=== PATIENT | female | born 1960 | race Hispanic/Latino ===

== ENCOUNTER 2018-05-28 17:06 | Inpatient (IN) | payer BC ==
[2018-05-28 18:26] LABS: BASO # 0.02 K/mm3 (0.0-2.0); BASO % 0.3 % (0.0-3.0); EOS # 0.1 (0.0-0.7); EOS % 0.8 % (1.5-5.0); GRAN # 4.14 (1.4-6.5); GRAN % 67.1 % (50.0-68.0); HEMOGLOBIN 13.6 g/dL (12.0-16.0); LYMPH # 1.6 (1.2-3.4); LYMPH % 26.1 % (22.0-35.0); MEAN CELL VOLUME 90.8 fl (80.0-105.0); MEAN CORPUSCULAR HEMOGLOBIN 29.9 pg (25.0-35.0); MEAN CORPUSCULAR HGB CONC 32.9 g/dl (31.0-37.0); MEAN PLATELET VOLUME 10.4 fl (7.0-11.0); MONO # 0.4 (0.1-0.6); MONO % 5.7 % (1.0-6.0); RBC 4.55 10^6/uL (3.5-6.1); RED CELL DISTRIBUTION WIDTH 12.3 % (11.5-14.5); WHITE BLOOD COUNT 6.2 10^3/uL (4.5-11.0)
[2018-05-28 18:33] LABS: INR 0.98; PARTIAL THROMBOPLASTIN TIME 27.2 Seconds (25.1-36.5); PROTHROMBIN TIME 11.2 SECONDS (9.4-12.5)
[2018-05-28 18:36] LABS: ALB/GLOB RATIO 1.5 (1.1-1.8); ALBUMIN 4.1 g/dL (3.0-4.8); ALT/SGPT 32 U/L (7-56); AST/SGOT 20 U/L (14-36); BLOOD UREA NITROGEN 14 mg/dL (7-21); CALCIUM 8.9 mg/dL (8.4-10.5); GFR NON-AFRICAN AMERICAN > 60
[2018-05-28 18:46] LABS: TROPONIN I < 0.01 ng/mL
--- NOTE | 2018-05-28 18:52 | ED PDOC ---
Arrival/HPI - General Chief Complaint: Altered Mental Status Time Seen by Provider: 05/28/18 17:14 Historian: Patient - History of Present Illness Narrative History of Present Illness (Text): 05/28/18 18:46 58yo female with pmhx of CVA, Alzheimer bib EMS for complaint of syncope this evening. the by the bedside states after taking a walk, patient suddenly collapsed at home, and he caught her stopping her from falling to the floor. states after patient became conscious she again had another syncopal episode. Denies previous history. Denies headache, dizziness, focal weakness, nausea, vomiting, URI symptoms, nausea, vomiting, abdominal pain, chest pain, back pain, visual changes, any other complaint. Past Medical History - Provider Review Nursing Documentation Reviewed: Yes - Infectious Disease Hx of Infectious Diseases: None - Reproductive Menopause: Yes - Cardiac Hx Cardiac Disorders: No Hx Pacemaker: No - Neurological Hx Alzheimer's Disease: Yes Hx Paralysis: No - Renal Hx Renal Disorder: No - Hematological/Oncological Hx Blood Transfusions: No - Musculoskeletal/Rheumatological Hx Musculoskeletal Disorders: No - Psychiatric Hx Emotional Abuse: No Hx Physical Abuse: No Hx Substance Use: No - Anesthesia Hx Anesthesia Reactions: No Hx Malignant Hyperthermia: No - Suicidal Assessment Feels Threatened In Home Enviroment: No Family/Social History - Physician Review Nursing Documentation Reviewed: Yes Family/Social History: Unknown Family HX Smoking Status: Unknown If Ever Smoked Hx Alcohol Use: No Hx Substance Use: No Allergies/Home Meds Allergies/Adverse Reactions: Allergies No Known Allergies Allergy (Verified 08/11/14 09:30) Home Medications: Home Meds Medication Instructions Recorded Confirmed Cefadroxil [Duricef] 500 mg PO BID 08/25/14 08/25/14 Oxycodone HCl/Acetaminophen 1 tab PO Q6 PRN 08/25/14 08/25/14 [Percocet 325 mg-5 mg] Review of Systems - Physician Review All systems were reviewed & negative as marked: Yes - Review of Systems Constitutional: Normal Eyes: Normal ENT: Normal Respiratory: Normal Cardiovascular: Normal Gastrointestinal: Normal Genitourinary Female: Normal Musculoskeletal: Normal Skin: Normal Neurological: Other (Syncope) Endocrine: Normal Hemo/Lymphatic: Normal Psychiatric: Normal Physical Exam Vital Signs Reviewed: Yes Vital Signs Temp Pulse Resp BP Pulse Ox 05/28/18 17:20 98.3 F 48 L 20 136/82 98 Temperature: Afebrile Blood Pressure: Normal Pulse: Regular Respiratory Rate: Normal Appearance: Positive for: Well-Appearing, Non-Toxic, Comfortable Pain Distress: None Mental Status: Positive for: Alert and Oriented X 3 - Systems Exam Head: Present: Atraumatic, Normocephalic Pupils: Present: PERRL Extroacular Muscles: Present: EOMI Conjunctiva: Present: Normal Mouth: Present: Moist Mucous Membranes Neck: Present: Normal Range of Motion Respiratory/Chest: Present: Clear to Auscultation, Good Air Exchange. No: Respiratory Distress, Accessory Muscle Use Cardiovascular: Present: Regular Rate and Rhythm, Normal S1, S2. No: Murmurs Abdomen: No: Tenderness, Distention, Peritoneal Signs Back: Present: Normal Inspection Upper Extremity: Present: Normal Inspection. No: Cyanosis, Edema Lower Extremity: Present: Normal Inspection. No: Edema Neurological: Present: GCS=15, CN II-XII Intact, Speech Normal, Motor Func Grossly Intact, Normal Sensory Function, Normal Cerebellar Funct, Normal 2Pt Descrimination Skin: Present: Warm, Dry, Normal Color. No: Rashes Psychiatric: Present: Alert, Oriented x 3, Normal Insight, Normal Concentration Medical Decision Making ED Course and Treatment: 05/28/18 18:53 58yo female in ED for syncope. Inspector Floor Sub Assembly CT EKG CXR Labs was unremarkable EKG Marked sinus yamil @ 47bpm Comparable to previous EKG Head CT - pending case was DW Dr. Carrasquillo and he accepted pt for admission. He request Dr. Valenzuela consult - Lab Interpretations Lab Results: 05/28/18 18:00 05/28/18 18:00 Lab Results 05/28/18 18:00: Sodium 138, Potassium 3.9, Chloride 101, Carbon Dioxide 30, Anion Gap 12, BUN 14, Creatinine 0.8, Est GFR ( Amer) > 60, Est GFR (Non- Af Amer) > 60, Random Glucose 97, Calcium 8.9, Phosphorus 5.0 H, Magnesium 2.2, Total Bilirubin 0.3, AST 20, ALT 32, Alkaline Phosphatase 90, Lactate Dehydrogenase 429, Total Creatine Kinase 53, Troponin I Pending, Total Protein 7.0, Albumin 4.1, Globulin 2.8, Albumin/Globulin Ratio 1.5 05/28/18 18:00: PT 11.2, INR 0.98, APTT 27.2 05/28/18 18:00: WBC 6.2, RBC 4.55, Hgb 13.6, Hct 41.3, MCV 90.8, MCH 29.9, MCHC 32.9, RDW 12.3, Plt Count 228, MPV 10.4, Gran % 67.1, Lymph % (Auto) 26.1, Sebastian % (Auto) 5.7, Eos % (Auto) 0.8 L, Baso % (Auto) 0.3, Gran # 4.14, Lymph # (Auto) 1.6, Sebastian # (Auto) 0.4, Eos # (Auto) 0.1, Baso # (Auto) 0.02 - RAD Interpretation Radiology Orders: 05/28/18 17:34 HEAD W/O CONTRAST [CT] Stat Disposition/Present on Arrival - Present on Arrival Any Indicators Present on Arrival: No History of DVT/PE: No History of Uncontrolled Diabetes: No Urinary Catheter: No History of Decub. Ulcer: No History Surgical Site Infection Following: None - Disposition Have Diagnosis and Disposition been Completed?: Yes Diagnosis: Syncope Disposition: HOSPITALIZED Disposition Time: 18:50 Patient Plan: Admission Patient Problems: Current Active Problems Problem Status Onset Syncope Acute Condition: FAIR Discharge Instructions (ExitCare): Syncope (ED) Referrals: PCP,NO [Primary Care Provider] - Follow up with primary Forms: [employer] (Setswana)
--- NOTE | 2018-05-28 20:38 | CP.PCM.HP ---
History of Present Illness - History of Present Illness History of Present Illness: Milton Morales, PGY1 H&P for Dr. Carrasquillo's Service This is a 58 year old female with PMH of CVA and alzheimer's disease presenting to the ER s/p 2 witnessed syncopal episodes. Per , patient was walking and started to feel dizzy and held onto patient as she lost consciousness. brought patient home and had another witnessed syncopal episode. denies any trauma including head trauma, urinary/fecal incontinence, muscle spasms, and tongue fasciculations. He states patient has never had syncopal episodes before. Patient does not recall anything from the syncopal episodes and per family has severe alzheimer's. Currently, she denies chest pain, SOB, fevers, headaches, numbness, tingling, swelling, weakness, nausea, vomiting, chills, back pain, abdominal pain, urinary complaints, diarrhea, constipation, recent travel, sickness, trauma, and lifestyle changes including medications, diet and weight. 12 point ROS noted here, otherwise unremarkable. PMD: none currently PMH: CVA, alzheimers Meds: donepezil 10mg, namenda 20mg FH: CAD, breast cancer, lung cancer All: NKDA Sx: 2014 adenoids SH: former smoker, denies drinking and drug use Present on Admission - Present on Admission Any Indicators Present on Admission: No Past Patient History - Infectious Disease Hx of Infectious Diseases: None - Past Social History Smoking Status: Former Smoker - CARDIAC Hx Cardiac Disorders: No Hx Pacemaker: No - NEUROLOGICAL Hx Alzheimer's Disease: Yes Hx Paralysis: No - RENAL Hx Chronic Kidney Disease: No - HEMATOLOGICAL/ONCOLOGICAL Hx Blood Transfusions: No - MUSCULOSKELETAL/RHEUMATOLOGICAL Hx Musculoskeletal Disorders: No - PSYCHIATRIC Hx Emotional Abuse: No Hx Physical Abuse: No Hx Substance Use: No - SURGICAL HISTORY Hx Surgeries: Yes - ANESTHESIA Hx Anesthesia Reactions: No Hx Malignant Hyperthermia: No Meds Allergies/Adverse Reactions: Allergies Allergy/AdvReac Type Severity Reaction Status Date / Time No Known Allergies Allergy Verified 08/11/14 09:30 Physical Exam - Constitutional Appears: No Acute Distress - Head Exam Head Exam: ATRAUMATIC, NORMAL INSPECTION - Eye Exam Eye Exam: EOMI Pupil Exam: PERRL - ENT Exam ENT Exam: Mucous Membranes Moist - Respiratory Exam Respiratory Exam: Clear to Auscultation Bilateral. absent: Accessory Muscle Use, Wheezes, Respiratory Distress - Cardiovascular Exam Cardiovascular Exam: REGULAR RHYTHM, +S1, +S2 - GI/Abdominal Exam GI & Abdominal Exam: Normal Bowel Sounds, Soft. absent: Firm, Guarding, Tenderness - Extremities Exam Extremities exam: Positive for: normal inspection, pedal pulses present. Negative for: calf tenderness, tenderness - Back Exam Back exam: NORMAL INSPECTION - Neurological Exam Neurological exam: Alert, CN II-XII Intact Additional comments: RUE/RLE and LUE/LLE motor strength 5/5 and no sensory deficits appreciated. Patient is alert to person but not place or time. Has trouble following commands - Skin Skin Exam: Normal Color, Warm Results - Vital Signs Recent Vital Signs: Last Vital Signs Temp 98.3 F 05/28/18 17:20 Pulse 56 L 05/28/18 19:06 Resp 18 05/28/18 19:06 BP 119/63 05/28/18 19:06 Pulse Ox 98 05/28/18 19:06 - Labs Result Diagrams: 05/28/18 18:00 05/28/18 18:00 Labs: Laboratory Results - last 24 hr 05/28/18 05/28/18 05/28/18 18:00 18:00 18:00 WBC 6.2 RBC 4.55 Hgb 13.6 Hct 41.3 MCV 90.8 MCH 29.9 MCHC 32.9 RDW 12.3 Plt Count 228 MPV 10.4 Gran % 67.1 Lymph % (Auto) 26.1 Potter % (Auto) 5.7 Eos % (Auto) 0.8 L Baso % (Auto) 0.3 Gran # 4.14 Lymph # (Auto) 1.6 Potter # (Auto) 0.4 Eos # (Auto) 0.1 Baso # (Auto) 0.02 PT 11.2 INR 0.98 APTT 27.2 Sodium 138 Potassium 3.9 Chloride 101 Carbon Dioxide 30 Anion Gap 12 BUN 14 Creatinine 0.8 Est GFR ( Amer) > 60 Est GFR (Non-Af Amer) > 60 Random Glucose 97 Calcium 8.9 Phosphorus 5.0 H Magnesium 2.2 Total Bilirubin 0.3 AST 20 ALT 32 Alkaline Phosphatase 90 Lactate Dehydrogenase 429 Total Creatine Kinase 53 Troponin I < 0.01 Total Protein 7.0 Albumin 4.1 Globulin 2.8 Albumin/Globulin Ratio 1.5 Assessment & Plan - Assessment and Plan (Free Text) Assessment: This is a 58 year old female with PMH of CVA and alzheimer's disease presenting to the ER s/p 2 witnessed syncopal episodes. Plan: Syncopal episode -cardiogenic vs neurogenic vs cardio-inhibitory -echo -MRI brain w/wo contrast -MRA brain without contrast -EEG -seizure/aspiring precautions -HOB 30 degrees -ASA, statin -neurochecks -U/A, urine culture -lipid, A1c, TSH, T4 free and total, B12, folate, RPR, lyme -orthostatics -EKG -carotid doppler -NS 80cc for 2L -Cardio on consult, Dr. acballero -Neurology on consult Hx of Alzheimer's -continue home medications, memantine and donepezil PPX with SCD and pepcid HHD Patient case discussed with attending, Dr. Carrasquillo
[2018-05-28 21:04] LABS: URINE BILIRUBIN NEGATIVE (NEGATIVE); URINE BLOOD NEGATIVE (NEGATIVE); URINE GLUCOSE (UA) NEGATIVE (NEGATIVE); URINE LEUKOCYTE ESTERASE TRACE Leu/uL (NEGATIVE); URINE PROTEIN TRACE mg/dL (<30 mg/dL); URINE UROBILINOGEN 0.2 E.U./dL (<1 E.U./dL)
[2018-05-28 21:06] LABS: URINE APPEARANCE SLIGHT-CLOUDY (CLEAR); URINE COLOR YELLOW (YELLOW)
[2018-05-28 21:17] LABS: URINE RBC NEGATIVE /hpf (0-2)
[2018-05-28 21:18] LABS: URINE CALCIUM OXALATE CRYSTALS MANY /hpf
[2018-05-28 21:20] LABS: BARBITURATES, UR NEGATIVE (NEGATIVE); BENZODIAZEPINES, UR NEGATIVE (NEGATIVE); OPIATES, UR NEGATIVE (NEGATIVE); PHENCYCLIDINE, UR NEGATIVE (NEGATIVE)
[2018-05-28] MEDS: Sodium Chloride 0.9% 1,000 ML IV SCH (21:20)
[2018-05-28 23:15] VITALS: BMI 17.9
[2018-05-28] MEDS ORDERED: Influenza Vaccine 60 mcg/0.5 mL SYR (4YR UP) IM ONE (23:15)
[2018-05-28] MEDS ORDERED: Pneumococcal 23-Valent Vaccine IM ONE (23:15)
[2018-05-29 06:37] LABS: BASO # 0.01 K/mm3 (0.0-2.0); BASO % 0.2 % (0.0-3.0); EOS % 0.5 % (1.5-5.0); GRAN # 3.97 (1.4-6.5); GRAN % 61.3 % (50.0-68.0); HEMOGLOBIN 12.4 g/dL (12.0-16.0); LYMPH # 2.1 (1.2-3.4); LYMPH % 31.7 % (22.0-35.0); MEAN CELL VOLUME 89.8 fl (80.0-105.0); MEAN CORPUSCULAR HEMOGLOBIN 29.3 pg (25.0-35.0); MEAN CORPUSCULAR HGB CONC 32.6 g/dl (31.0-37.0); MEAN PLATELET VOLUME 10.7 fl (7.0-11.0); MONO # 0.4 (0.1-0.6); MONO % 6.3 % (1.0-6.0); RBC 4.23 10^6/uL (3.5-6.1); RED CELL DISTRIBUTION WIDTH 12.4 % (11.5-14.5); WHITE BLOOD COUNT 6.5 10^3/uL (4.5-11.0)
[2018-05-29] MEDS: Pantoprazole 40 mg EC Tab PO SCH (06:58)
[2018-05-29 07:20] LABS: FREE T4 1.06 ng/dL (0.78-2.19); T4 7.9 ug/dL (5.5-11.0)
[2018-05-29 07:36] LABS: ALB/GLOB RATIO 1.3 (1.1-1.8); ALBUMIN 3.7 g/dL (3.0-4.8); ALT/SGPT 24 U/L (7-56); AST/SGOT 23 U/L (14-36); BLOOD UREA NITROGEN 9 mg/dL (7-21); CALCIUM 8.9 mg/dL (8.4-10.5); GFR NON-AFRICAN AMERICAN > 60; HDL CHOLESTEROL 52 mg/dL (29-60); LDL CHOLESTEROL 107 mg/dL (0-129)
--- NOTE | 2018-05-29 09:06 | CT ---
Date of service: 05/28/2018 PROCEDURE: CT HEAD WITHOUT CONTRAST. HISTORY: Syncope COMPARISON: None available. TECHNIQUE: Axial computed tomography images were obtained through the head/brain without intravenous contrast. Supplemental Coronal and Sagittal projections created and reviewed. Radiation dose: Total exam DLP = 759.21 mGy-cm. This CT exam was performed using one or more of the following dose reduction techniques: Automated exposure control, adjustment of the mA and/or kV according to patient size, and/or use of iterative reconstruction technique. FINDINGS: HEMORRHAGE: No intracranial hemorrhage. BRAIN: No mass effect or edema. Cortical atrophy and chronic microvascular ischemic change. VENTRICLES: Unremarkable. No hydrocephalus. CALVARIUM: Unremarkable. PARANASAL SINUSES: Unremarkable as visualized. No significant inflammatory changes. MASTOID AIR CELLS: Unremarkable as visualized. No inflammatory changes. OTHER FINDINGS: None. IMPRESSION: No acute intracranial abnormalities. No significant findings to account for the clinical presentation. Concordant results (preliminary interpretation) provided by [employer]. Procedure Completed: 18:44. Preliminary Report: Dictated and Authenticated: 19:16. Final Interpretation: 09:02. May 29, 2018
[2018-05-29] MEDS: Sodium Chloride 0.9% 1,000 ML IV SCH ×2 (09:30→17:45)
[2018-05-29] MEDS ORDERED: Gadodiamide 287 MG/ML VIAL (15ML) IV ONE (09:39)
--- NOTE | 2018-05-29 11:19 | MRI ---
Date of service: 05/29/2018 PROCEDURE: MRI BRAIN WITH AND WITHOUT CONTRAST HISTORY: syncopal episode COMPARISON: None available. TECHNIQUE: Multiplanar, multisequence MR images of the brain were obtained with and without intravenous contrast enhancement. 15 cc of Omniscan FINDINGS: HEMORRHAGE: None DWI: No evidence of an acute or early subacute infarction. BRAIN PARENCHYMA: No mass,mass effect or edema. Mild atrophy. Minimal microvascular changes ENHANCEMENT: No abnormal intracranial enhancement. VENTRICLES: There is asymmetry in ventricular size left larger than right. CRANIUM: Unremarkable. ORBITS: Grossly unremarkable. PARANASAL SINUSES/MASTOIDS: Clear VASCULAR SYSTEM: Skull base flow voids intact. OTHER FINDINGS: None . IMPRESSION: Unremarkable pre and post contrast enhanced MRI of the brain.
--- NOTE | 2018-05-29 11:21 | MRI ---
Date of service: 05/29/2018 PROCEDURE: Magnetic Resonance Angiography Brain HISTORY: syncope COMPARISON: None available. TECHNIQUE: 3D time of flight MR angiography of the intracranial arteries was performed. Rotating maximum intensity projection images were generated. FINDINGS: INTERNAL CAROTID ARTERIES: Unremarkable. The skull base, petrous, cavernous and supraclinoid segments are bilaterally widely patient. ANTERIOR CEREBRAL ARTERIES: Unremarkable. A1 and A2 segments are widely patent. Smaller distal branches unremarkable, as visualized. MIDDLE CEREBRAL ARTERIES: Unremarkable. M1 and M2 segments are widely patent. Perisylvian branches grossly symmetric. POSTERIOR CIRCULATION: Basilar Artery: Unremarkable. Distal Vertebral Arteries: Unremarkable. Posterior Cerebral Arteries: Unremarkable. Posterior Inferior Cerebellar Arteries: Unremarkable. ANEURYSM/ VASCULAR MALFORMATIONS: None. OTHER FINDINGS: None. IMPRESSION: Unremarkable MR angiography of the brain.
[2018-05-29] MEDS: Enoxaparin 40 mg Syringe SC SCH (12:12)
[2018-05-29 13:12] LABS: FOLATE 9.8 ng/mL
--- NOTE | 2018-05-29 13:45 | CON ---
DATE: 05/29/2018 CARDIOLOGY CONSULTATION HISTORY: The patient is a 58-year-old woman, who presented with a syncopal episode. Apparently, it was witnessed. PAST MEDICAL HISTORY: The patient's past medical history is with a history of CVA in the past as well as a diagnosis of Alzheimer. No previous cardiac history is noted. The patient does not remember why she is here nor the syncopal episode. Her past medical history is free of cardiac disease other than being on Lipitor. No chest pain. No shortness of breath. REVIEW OF SYSTEMS: Essentially unreliable. PHYSICAL EXAMINATION: VITAL SIGNS: The blood pressure is 120/60, the heart rate is in the 50s. Normal sinus rhythm. NECK: Negative JVD. LUNGS: Without rales. HEART: Heart rate S1, S2. EXTREMITIES: Without edema. LABORATORY DATA: Hemoglobin is 12.5. Chemistries, BUN and creatinine are unremarkable. Troponin is negative x1. EKG shows no acute changes. IMPRESSION: 1. Syncope. 2. Alzheimer's. 3. History of cerebrovascular accident. 4. Hypercholesterolemia. PLAN: Given these findings, echocardiogram is pending. So far, there is no obvious cardiac cause of her syncope. Amado Arriola MD
--- NOTE | 2018-05-29 17:13 | RAD ---
HISTORY: SYNCOPE COMPARISON: Chest x-ray performed 08/11/14 TECHNIQUE: Chest PA and lateral FINDINGS: LUNGS: No focal consolidation. Bilateral 9 mm nodular opacities projecting over the lower lobes appear consistent with nipple shadows. 1.8 cm rounded opacities identified projecting over the right and left upper lobes. Please note that chest x-ray has limited sensitivity for the detection of pulmonary masses. PLEURA: No significant pleural effusion identified. No definite pneumothorax . CARDIOVASCULAR: Heart size appears within normal limits. Atherosclerotic calcification present. OSSEOUS STRUCTURES: No acute osseous abnormality identified. VISUALIZED UPPER ABDOMEN: Unremarkable. OTHER FINDINGS: None. IMPRESSION: No focal consolidation. Bilateral nodular opacities projecting over the lower lobes appear consistent with nipple shadows. 1.8 cm rounded opacities within the right and left upper lobes may reflect external the artifact related to monitoring devices; correlate clinically.
--- NOTE | 2018-05-29 17:16 | CARD ---
APPROVED REPORT Date of service: 05/29/2018 EXAM: Two-dimensional and M-mode echocardiogram with Doppler and color Doppler. INDICATION Syncope 2D DIMENSIONS Left Atrium (2D)2.2 (1.6-4.0cm)IVSd0.8 (0.7-1.1cm) LVDd3.9 (3.9-5.9cm)PWd0.8 (0.7-1.1cm) LVDs2.7 (2.5-4.0cm)FS (%) 30.8 % LVEF (%)59.0 (>50%) M-Mode DIMENSIONS Aortic Root2.70 (2.2-3.7cm)Aortic Cusp Exc.1.90 (1.5-2.0cm) Aortic Valve AoV Peak Erblclhn744.0cm/Kamille Peak GR.5mmHg Mitral Valve MV E Nsedykpk57.1cm/sMV A Pyhlzuoh36.8cm/sE/A ratio1.5 TDI E/Lateral E'0.0E/Medial E'0.0 Tricuspid Valve TR Peak [id number]/sRAP [id number] Peak Gr.24mmHg [id number] LEFT VENTRICLE The left ventricle is normal size. There is normal left ventricular wall thickness. The left ventricular function is normal. The left ventricular ejection fraction is within the normal range. There is normal LV segmental wall motion. The left ventricular diastolic function is normal. RIGHT VENTRICLE The right ventricle is normal size. There is normal right ventricular wall thickness. The right ventricular systolic function is normal. ATRIA The left atrium size is normal. The right atrium size is normal. AORTIC VALVE The aortic valve is not well visualized. No aortic regurgitation is present. There is no aortic valvular stenosis. MITRAL VALVE The mitral valve is not well visualized. There is no mitral valve regurgitation noted. There is no mitral valve stenosis. TRICUSPID VALVE The tricuspid valve is normal in structure. There is trace tricuspid regurgitation. PULMONIC VALVE The pulmonary valve is normal in structure. There is no pulmonic valvular regurgitation. GREAT VESSELS The aortic root is normal in size. PERICARDIAL EFFUSION Pericardium appears mildly thickened. <Conclusion> The left ventricle is normal size. There is normal left ventricular wall thickness. The left ventricular function is normal. The left ventricular ejection fraction is within the normal range. There is normal LV segmental wall motion. The left ventricular diastolic function is normal.
--- NOTE | 2018-05-29 19:01 | CON ---
DATE: 05/29/2018 NEUROLOGY CONSULT CHIEF COMPLAINT: Syncope. History is taken from medical record since the patient has a poor recollection. CURRENT HISTORY OF PRESENT ILLNESS: A 58-year-old woman with history of TIA, Alzheimer's disease, on Namenda and Aricept, presented to ER, status post witnessed syncopal episode. As per , the patient was walking and started to feel lightheaded and held onto the patient, she lost consciousness. brought the patient home and had another episode of syncopal event and she mentioned that she had 2. denies any trauma leading to the head trauma or urinary or fecal incontinence as well as no tongue fasciculations. He states that she has never had these syncopal episodes before. The patient did not recall anything from them. Her EEG shows mild diffuse slowing, but no evidence of an epileptiform activity. The patient has severe Alzheimer's disease and family history of Alzheimer's disease. Her MRI of the brain, MRA of the head were unremarkable for anything acute. Carotid Doppler results were pending. She moves all extremities, follows simple commands. PAST MEDICAL HISTORY: As above. SOCIAL HISTORY: No illicit drug use, smoking, or EtOH abuse. MEDICATIONS: Reviewed by nurse's reconciliation sheet. FAMILY HISTORY: Noncontributory except for coronary artery disease, breast cancer, lung cancer. REVIEW OF SYSTEMS: Fourteen-point review of systems is negative except per the HPI. LABORATORY DATA: Sodium is 140, potassium 3.8, chloride of 105, carbon dioxide of 29, BUN of , random glucose of 82. CURRENT PHYSICAL EXAMINATION VITAL SIGNS: Temperature of 98.8, pulse rate of 56, blood pressure of 104/52, respiratory rate of 17. GENERAL: The patient is seen up in bed, in no acute distress. HEENT: Head is atraumatic, normocephalic. PERRLA. Extraocular muscles are intact. NECK: Supple. No JVD. No adenopathy noted. LUNGS: Clear to auscultation. No adventitious sounds. HEART: S1 and S2. Normal rate and rhythm. No murmurs, rubs, or gallops. ABDOMEN: Soft, nontender, nondistended. Bowel sounds are present. EXTREMITIES: No clubbing. No cyanosis. Peripheral pulses are 2+ felt bilaterally. NEUROLOGIC: The patient is alert, oriented to herself and year. Recall after 5 minutes is 0/3. Slow attention span. Slow thought process. Speech is fluent without any errors, mildly hypophonic. Cranial nerves II through XII are intact. Motor exam; slightly increased tone throughout. Moves all extremities equally. extremities. Sensory exam; light touch, pinprick, proprioception, and vibration are intact. DTRs are 2+ throughout. Coordination; [id number] intact. No dysmetria noted. Gait is deferred for now. IMPRESSION: Syncope, seems most likely vasovagal in nature, superimposed underlying Alzheimer's disease and there are episodes of bradycardia seen on her telemonitoring with the lowest being from 45 to 56. RECOMMENDATIONS: 1. Followup for bradycardia in regards to Cardiology. 2. Keep her systolic blood pressure in 120s to 130s systolic and diastolics in the 80s. 3. Adequate hydration throughout the day. 4. I would advise to continue with Namenda 10 mg p.o. b.i.d. for underlying Alzheimer's, but consider possibly to stop the Aricept since there is some evidence of bradycardia. At this time, continue with current and present medical management. She is clinically stable from my standpoint. Vivek Valenzuela MD
--- NOTE | 2018-05-29 19:21 | PN ---
DATE: 05/29/2018 SUBJECTIVE: The patient is seen in room 275, bed 2. The patient is lying in the bed. The patient's spouse and daughter are at bedside. The patient is alert, awake, responsive, confused, disoriented, only oriented to her name but unable to spell her first and last name forward and backward. The patient's overnight nurse's notes were reviewed. The patient underwent multiple testing. OBJECTIVE: VITAL SIGNS: Telemetry monitoring shows sinus bradycardia, heart rate 56, 50, 53, 48; T-max 98.9; blood pressure 06/21/59, 113/67, 104/52, 06/26/79; respiration 17; O2 sat was 98%. HEAD: Normocephalic, atraumatic. HEENT: [place] conjunctivae. Anicteric sclerae. No oropharyngeal lesion. NECK: No neck rigidity. Questionable soft carotid bruit. CHEST: Kyphosis. LUNGS: No audible crackle, rales or wheezing. CARDIOVASCULAR: S1, S2, regular rhythm. ABDOMEN: Soft. Positive bowel sound. No palpable hepatosplenomegaly noted. GENITALIA:. Female. RECTAL: Deferred. EXTREMITY: No pitting edema, no calf tenderness, no Homans' sign. NEUROLOGIC: The patient is alert, awake, responsive, confused, disoriented. The patient is unable to follow simple command. MUSCULOSKELETAL: Shows a body mass index of 18. LABORATORY DATA: On 05/29/2018, CBC is WBC 6.5, hemoglobin and hematocrit 12.4 and 38, platelet 219. Sodium 140, potassium 3.8, chloride 105, CO2 29, anion gap 9, BUN 9, creatinine 0.7, GFR greater than 60, glucose 82, hemoglobin A1c 5.2. LFTs are normal. Cholesterol 171, LDL 107, HDL 52. Vitamin B12 187, folate 9.8. TSH 4.1, T4 7.9. Urinalysis, trace protein, trace ketone, trace leukocyte esterase, many calcium oxalate crystals. Urine drug screen negative. DIAGNOSTICS: The patient's MRI, MRA, echocardiogram, carotid Doppler, the results of whichever is available reviewed. Echocardiogram results are pending. Carotid Doppler results are pending. EKG shows sinus bradycardia, heart rate 48. IMPRESSION: 1. Witnessed syncope x2. 2. Questionable cardioinhibitory versus neurogenic versus cardiogenic versus vasovagal syncope. 3. History of advanced Alzheimer's dementia. 4. History of hyperlipidemia. 5. Vitamin B12 deficiency. 6. Hyperlipidemia with elevated low density lipoprotein. 7. Proteinuria, ketonuria, pyuria with calcium oxalate crystals in the urine. 8. Cerebral cortical atrophy of the brain and chronic microvascular ischemic disease of the brain. 9. Asymmetrical ventricular size, left larger than the right. 10. Syncope. 11. Hypercholesteremia. 12. Marked sinus bradycardia. 13. Syncope questionable secondary to hypotension versus bradycardia. 14. Advanced dementia. 15. Deconditioning. PLAN: At this time, we are awaiting for methylmalonic acid, H. pylori, homocysteine, intrinsic factor, antiparietal cell antibody, urine and blood cultures, results are pending. Current consultation, Neurology, Cardiology. The patient's Lyme titers are pending. RPR results are pending. Current medications, Aricept 10 mg at bedtime, Ecotrin 81 mg daily, folic acid 1 mg daily, Lipitor 40 mg daily, Lovenox 40 mg subcu daily, Namenda 10 mg twice a day, Protonix 40 mg daily, IV fluid 0.9 normal saline at 80 mL an hour, Tylenol 650 p.r.n., vitamin B12 1000 mcg IM daily total 10, and Zofran IV every 4 hours. The patient's vitamin D hydroxy level is pending.. Chest x-ray reports pending. Carotid Doppler results pending. Heart-healthy diet is pending. Echo results are pending. EEG was completed, results pending. The patient seen by case management, family met with the case management. The patient is actually totally disoriented, but case management has documented the patient is alert, awake, oriented x3, and I have examined the patient around the same time on 05/29/2018. The patient is alert, awake but oriented x0 to 1. The patient is totally confused. The patient is awaiting physical therapy, occupational therapy evaluation. Out of bed to chair has been ordered.. At present, the patient's further management will be dependent upon the patient's clinical condition, hemodynamic status and as per the patient's response to therapeutic intervention, as per the patient's diagnostic test results and as per recommendation by all the physicians involved in the care of the patient. I have discussed the patient's condition, diagnosis, diagnostic test results and recommendation by all the physicians involved in the care of the patient at length with the patient's and the family at bedside. All questions concerned answered. I have explained to the patient's spouse about the patient's need for 24 hours care and supervision because of the patient's mental condition, neurological status, severe advanced dementia, Alzheimer's and memory dysfunction. The patient's Neurology, Cardiology evaluation is pending, which will be reviewed. Dictated and electronically signed, not read. Zac Carrasquillo MD
--- NOTE | 2018-05-29 20:34 | CARD ---
APPROVED REPORT Date of service: 05/29/2018 EKG Measurement Heart [id number] <Conclusion> Marked sinus bradycardia Low voltage QRS Cannot rule out Anterior infarct, age undetermined Abnormal ECG
--- NOTE | 2018-05-29 20:40 | CARD ---
APPROVED REPORT Date of service: 05/28/2018 EKG Measurement Heart [id number] <Conclusion> Marked sinus bradycardia Abnormal ECG
--- NOTE | 2018-05-29 22:56 | US ---
PROCEDURE: Bilateral carotid artery duplex ultrasound HISTORY: Carotid stenosis PHYSICIAN(S): Amado Gaviria MD. TECHNIQUE: Duplex sonography and color-flow Doppler were used to evaluate the carotid bifurcations and limited segments of the vertebral arteries bilaterally. FINDINGS: There is mild smooth heterogeneous plaque noted at the carotid bifurcations bilaterally. The peak systolic velocity in the proximal right internal carotid artery is 78 cm/sec. This corresponds to a 20 to 39% proximal right ICA stenosis. Normal systolic velocities are noted in the proximal right external carotid artery. There is antegrade flow in the right vertebral artery. The peak systolic velocity in the proximal left internal carotid artery is 76 cm/sec. This corresponds to a 20 to 39% proximal left ICA stenosis. Normal systolic velocities are noted in the proximal left external carotid artery. There is antegrade flow in the left vertebral artery. IMPRESSION: 1. Bilateral 20-39% proximal ICA stenoses. 2. Antegrade flow in both vertebral arteries.
[2018-05-29] MEDS ORDERED: DiphenhydrAMINE 50 mg/ml Inj IVP STA (23:33)
[2018-05-30 06:34] VITALS: O2SAT 96
[2018-05-30] MEDS: Pantoprazole 40 mg EC Tab PO SCH (07:03)
[2018-05-30] MEDS ORDERED: Ergocalciferol 50,000 Intl Units Cap PO SCH (09:00)
[2018-05-30] MEDS: Enoxaparin 40 mg Syringe SC SCH (09:59)
[2018-05-30] MEDS ORDERED: Pantoprazole 40 mg EC Tab PO SCH ×2 (10:00→16:00)
--- NOTE | 2018-05-30 10:37 | CT ---
Date of service: 05/29/2018 PROCEDURE: CT Chest without contrast HISTORY: NODULES COMPARISON: None available. TECHNIQUE: Contiguous axial images were obtained through the chest without intravenous contrast enhancement. Sagittal and coronal reconstructions were performed. Radiation dose: Total exam DLP = 188.03 mGy-cm. This CT exam was performed using one or more of the following dose reduction techniques: Automated exposure control, adjustment of the mA and/or kV according to patient size, and/or use of iterative reconstruction technique. FINDINGS: LUNGS: Diffuse centrilobular emphysema. No pulmonary mass or suspicious pulmonary nodule. Clear lungs. Visualized airway clear MEDIASTINUM: Unremarkable thoracic aorta. No aneurysm. Normal sized heart. Main pulmonary artery unremarkable. No vascular congestion. No lymphadenopathy. Aortic atherosclerotic calcification. PLEURA: No pleural fluid. No pneumothorax. BONES: No fracture. No destructive lesion. UPPER ABDOMEN: Grossly unremarkable. OTHER FINDINGS: None. IMPRESSION: No pulmonary mass or suspicious pulmonary nodule. Rounded nodule seen on chest radiograph correspond to overlying EKG stickers.
--- NOTE | 2018-05-30 12:35 | PN ---
DATE: 05/30/2018 CARDIOLOGY FOLLOWUP SUBJECTIVE: The patient is in bed. She does not remember her fall. When speaking to the family, a true syncopal episode occurred. PHYSICAL EXAMINATION: VITAL SIGNS: Blood pressure is 99/68, the heart rate varies during her sleep to sinus bradycardia in the 40s to currently to 59 normal sinus rhythm. During her sleep when her heart rate was in the 40s, her blood pressure was 99/68. Currently the blood pressure is 110 systolic. NECK: Negative JVD. LUNGS: Without rales. HEART: Reveals S1 and S2. EXTREMITIES: Without edema. LABORATORY DATA: Hemoglobin is 12.7. Chemistries, BUN and creatinine unremarkable. Thyroid function test unremarkable. Echocardiogram shows good LV function. IMPRESSION: 1. True syncope. 2. Resting sinus bradycardia with no evidence at this time that the bradycardia is the cause of her syncope. 3. History of cerebrovascular accident. 4. Alzheimer's. 5. Hypercholesterolemia. Given these findings, I have instructed the nurse to ambulate the patient and monitor the heart rate. We will be looking for an appropriate heart rate response for exercise as well as symptoms while ambulation. We are looking to see a correlation of heart rate to symptoms and blood pressure to see whether a pacemaker is warranted. Amado Arriola MD
[2018-05-30 13:57] VITALS: BP 103/54; RESP 17; TEMP 98.6
[2018-05-30 16:27] VITALS: PULSE 66
--- NOTE | 2018-05-30 21:06 | DS ---
HISTORY OF PRESENT ILLNESS: The patient is seen in room 275, bed 2. The patient is out of bed to chair with the patient's spouse and daughter at bedside. The patient is alert, awake, responsive, confused, and disoriented. Telemetry in the last 24 hours shows sinus bradycardia, heart rate in high 40s, when the patient ambulated heart rate went up to 67 and 66 loss of consciousness. PHYSICAL EXAMINATION VITAL SIGNS: T-max is 98.6, blood pressure 103/54, respiration 17-20, O2 sat 96%. GENERAL: The patient is seen and sitting up in the chair with the patient's spouse and daughter at bedside. The patient is alert, awake, responsive, confused, and disoriented. The patient's heart rate went down to 60-65 without dizziness on ambulation. The patient slept well. HEAD: Normocephalic and atraumatic. HEENT: Shows pink conjunctivae. Anicteric sclerae. No oropharyngeal lesion. No neck rigidity. CHEST: Kyphosis. LUNGS: Shows no audible crackle, rales or wheezing. CARDIOVASCULAR: S1, S2, regular rhythm. Questionable soft systolic murmur left sternal border, right second intercostal space, left second intercostal space. No audible murmur, gallop or rub noted. ABDOMEN: Soft. Positive bowel sound. No palpable hepatosplenomegaly noted. GENITALIA: Female. RECTAL: Deferred. EXTREMITY: Shows no pitting edema, no calf tenderness, no Homans' sign. NEUROLOGIC: The patient is alert, awake, oriented times zero to one. Able to move upper and lower extremity without assistance. Gait examination is not tested. DIAGNOSTICS: During this hospitalization was reviewed and explained to the patient's and the patient's daughter at bedside. H. Pylori is positive, which was explained to the patient's daughter and the spouse. The patient's chest x-ray, MRI brain, MRA brain, carotid ultrasound all were reviewed. The patient had abnormal chest x-ray which shows a nodule. The patient's CT of the chest was done which shows right lower lobe 3 mm nodule and moderate to severe emphysema with upper lobe predominance. The MRI, MRA of the brain, carotid Dopplers, CT of the head was all reviewed and explained to the patient's and daughter at length and all questions concerned answered. ECHOCARDIOGRAM: EKG was reviewed and explained to the patient's and daughter. The patient seen by Neurology and Cardiology. Their recommendation was noted and explained to the patient's family. IMPRESSION AND PLAN: 1. Witnessed syncope questionable cardioinhibitory versus neurogenic versus cardiogenic versus vasovagal syncope. 2. History of questionable cerebral infarct. 3. History of advanced Alzheimer's dementia. 4. History of former smoking. 5. Hypotension. 6. Hyperhomocystinemia. 7. Hypovitaminosis D. 8. Vitamin B12 deficiency. 9. Trace proteinuria, ketonuria, pyuria, and positive calcium oxalate crystal. 10. Helicobacter pylori gastritis. 11. Moderate to severe emphysema with upper lobe predominance. 12. Right lower lobe 3 meter nodule. 13. Left ventricular ejection fraction of 59%. 14. Deconditioning. 15. Diffuse centrilobular emphysema. 16. Right and left upper lobe opacities. 17. Microvascular ischemic disease of the brain. 18. Ventricular asymmetry, left larger than the right. 19. Severe dementia. 20. Bilateral 20-39% proximal internal carotid artery stenosis. 21. Chronic microvascular ischemic disease of the brain and cerebral cortical atrophy of the brain. 22. Sinus bradycardia. 23. Age indeterminate anterior infarct. 24. Resting sinus bradycardia. 25. Hypercholesterolemia. 26. Questionable bradycardia secondary to Aricept. PLAN: At this time, the patient was cleared for discharge by Neurology, Cardiology, but the patient was advised to have the Aricept stopped because of some evidence of bradycardia as per Neurology recommendation. The patient was to be discharged home after cleared by Cardiology. The patient is to be discharged on amoxicillin 1000 mg p.o. twice a day for 2 weeks, aspirin 81 mg daily, Lipitor 40 mg daily, Biaxin 500 mg every 12, vitamin B12 1000 mcg IM daily total 10, and then monthly, Drisdol 50,000 units weekly, folic acid 1 mg daily, Namenda 10 mg twice a day, Protonix 40 mg twice a day. The patient is to be discharged home with discharge followup with , Dr. Amado Arriola and Dr. Carrasquillo. The patient's spouse has also been advised the patient needs an outpatient followup with Gastroenterology for scheduling endoscopy and colonoscopy. The patient's case was referred to [facility]. Since the patient's family expressed interest in taking the patient home after they are meeting with psychosocial rehabilitation counselor and case management. During this hospitalization, the patient's spouse and the family was extensively explained about the patient's condition, diagnosis, treatment plan, management plan. All details discussed and explained to the patient and family at length and all questions concerned answered Dictated and electronically signed, not read. Signing off, Zac Carrasquillo MD
--- NOTE | 2018-06-01 11:33 | EEG ---
DATE: EEG CONDITION OF THE RECORDING: Awake. DIAGNOSIS: Syncope. MEDICATIONS: Reviewed by nurse reconciliation sheet. INTERPRETATION: This is a 16-channel international recording. The background activity of this tracing was composed of 6 to 7 cycles per second. There was small amount of beta activity of 16 to 20 cycles per second seen in this recording. There was increased amount of theta activity of 5 to 7 cycles per second seen in this tracing. Drowsiness was characterized by the mixed beta and theta activities. The sleep was characterized by vertex transient waves, sleep spindles and bilateral slowing. Photic stimulation showed no change in the tracing. No paroxysmal activities were noted in this recording. CONCLUSIONS: This is an abnormal EEG due to evidence of mild diffuse slowing consistent with mild bilateral cerebral dysfunction. No evidence of any epileptiform activity. Please clinically correlate. Vivek Valenzuela MD
--- NOTE | 2018-06-01 13:16 | PCM.EEG ---
Electroencephalogram Report - Electroencephalogram Report Procedure Date: 05/29/18 Medication: None listed Interpretation: Clinical Information: syncope Medications: None listed Technical Information: This was a 16-channel EEG, 1-channel EKG , performed using an [employer] machine., electrodes were applied according to the 10/20 international placement system, impedances were less than 5 K Ohm. start; 10;45 End; 11;38 total 50 min EEG Detail: During resting wakefulness there was a symmetric posterior dominant rhythm at 7 Hz, 30-50 uV, which was reactive to eye opening and closing. Drowsiness was not seen Sleep was not seen. There were occasional bursts of bi frontal paroxysmal activity at 4 Hz, lasting 1 to 4 second FIRDA Hyperventilation was not performed. Photic stimulation was performed and there were no changes in the record. ECG was associated with a normal sinus rhythm. Impression: This is an abnormal EEG record that demonstrate the presence of a mild non specific diffuse disturbance of cortical activity, this is in keeping with a diffuse matta matter dysfunction. These findings do not support a specific etiology.
[2018-06-02 10:44] LABS: LYME IGG NEGATIVE (NEGATIVE)
[2018-06-02 10:55] LABS: LYME IGM NEGATIVE (NEGATIVE)
[2018-06-03 09:34] LABS: METHYLMALONIC ACID,SERUM 210 nmol/L (87-318)
== END 2018-05-30 19:23 | disposition home or self-care (01) | DRG 312 ==
LOC: ED 17:06 → ERH 18:44 → 2RSO 21:47
PROVIDERS: ADMIT Internal Medicine; ATTEND Internal Medicine
DX: R55 Syncope and collapse (principal); G30.9 Alzheimer's disease, unspecified; F02.80 Dementia in other diseases classified elsewhere, unspecified severity, without behavioral disturbance, psychotic disturbance, mood disturbance, and anxiety; J43.2 Centrilobular emphysema; K29.70 Gastritis, unspecified, without bleeding; B96.81 Helicobacter pylori [H. pylori] as the cause of diseases classified elsewhere; E78.5 Hyperlipidemia, unspecified; R00.1 Bradycardia, unspecified; E78.00 Pure hypercholesterolemia, unspecified; E55.9 Vitamin D deficiency, unspecified; E53.8 Deficiency of other specified B group vitamins; I65.23 Occlusion and stenosis of bilateral carotid arteries; Z87.891 Personal history of nicotine dependence; Z86.73 Personal history of transient ischemic attack (TIA), and cerebral infarction without residual deficits

== ENCOUNTER 2018-06-17 08:04 | Outpatient (CLI) | payer BC | END 2018-06-17 08:05 | disposition home or self-care (01) | LOC: RAD 08:04 | DX: Z12.31 Encounter for screening mammogram for malignant neoplasm of breast (principal); M81.0 Age-related osteoporosis without current pathological fracture ==